=== PATIENT | female | born 1970 | race Two or more races ===

== ENCOUNTER 2021-11-12 12:21 | Emergency (ER) | payer OTHER ==
[~2021-11-12] VITALS: Ht 165.1 cm; Wt 140.0 kg
[2021-11-12 12:40] VITALS: BP 119/91
== END 2021-11-12 14:36 | disposition left against medical advice (07) ==
LOC: ER 12:21
DX: M79.605 Pain in left leg (principal); M79.604 Pain in right leg; Z53.21 Procedure and treatment not carried out due to patient leaving prior to being seen by health care provider